=== PATIENT | male | born 1935 | race Native Hawaiian/Other Pacific Islander ===

== ENCOUNTER 2017-11-18 07:48 | Outpatient (CLI) | payer OTHER | END 2017-11-18 21:38 | disposition home or self-care (01) | LOC: MRI 07:48 | DX: M54.5 Low back pain (principal); M43.16 Spondylolisthesis, lumbar region; M48.062 Spinal stenosis, lumbar region with neurogenic claudication | CPT/HCPCS: 36415; 82565; 84520; A9576 ==